=== PATIENT | male | born 1940 | race Caucasian/White ===

== ENCOUNTER 2017-12-26 13:57 | Emergency (ER) | payer OTHER ==
[2017-12-26 14:38] LABS: ADD MAN DIFF? NO
[2017-12-26] MEDS: SOD CHLORIDE 0.9% 500 ML IV (14:38)
[2017-12-26] MEDS: ASPIRIN 325 MG TAB PO (14:38)
[2017-12-26] MEDS: LIDOCAINE/MYLANTA 40 ML BTL PO (14:38)
[2017-12-26 14:40] LABS: WHITE BLOOD COUNT 7.6 10^3/ul (4.8-10.8)
[2017-12-26 14:40] LABS: BASOPHILS % 0.3 % (0.0-2.0); EOSINOPHILS # 0.2 10^3/ul (0.0-0.5); EOSINOPHILS % 2.8 % (0.0-7.0); HEMATOCRIT 41.9 % (42.0-52.0); HEMOGLOBIN 14.6 g/dl (14.0-18.0); LYMPHOCYTES # 1.9 10^3/ul (0.8-2.9); LYMPHOCYTES % 25.4 % (15.0-51.0); MEAN CORPUSCULAR HEMOGLOBIN 31.1 pg (29.0-33.0); MEAN CORPUSCULAR HGB CONC 34.8 g/dl (32.0-37.0); MEAN CORPUSCULAR VOLUME 89.3 fl (82.0-101.0); MEAN PLATELET VOLUME 9.7 fl (7.4-10.4); MONOCYTE # 0.6 10^3/ul (0.3-0.9); MONOCYTES % 8.1 % (0.0-11.0); NEUTROPHIL # 4.8 10^3/ul (1.6-7.5); NEUTROPHILS % 63.3 % (39.0-77.0); PLATELET COUNT 256 10^3/UL (140-415); RED BLOOD COUNT 4.69 10^6/ul (4.70-6.10); RED CELL DISTRIBUTION WIDTH 12.7 % (11.5-14.5)
[2017-12-26 15:02] LABS: ANION GAP 19 (8-16); BLOOD UREA NITROGEN 23 mg/dl (7-20); CALCIUM 9.9 mg/dl (8.4-10.2); CARBON DIOXIDE 24 mmol/L (21-31); CHLORIDE 103 mmol/L (97-110); CREATININE 0.78 mg/dl (0.61-1.24); GLUCOSE 169 mg/dl (70-220); POTASSIUM 4.1 mmol/L (3.5-5.1); SODIUM 142 mmol/L (135-144)
[2017-12-26 15:14] LABS: B-TYPE NATRIURETIC PEPTIDE 73 PG/ML (0-450)
[2017-12-26 15:19] LABS: TROPONIN-I < 0.012 ng/ml (0.000-0.120)
[2017-12-26] MEDS: KETOROLAC 15 MG INJ IV (18:10)
== END 2017-12-26 18:51 | disposition home or self-care (01) ==
LOC: E/R 13:57
DX: R20.2 Paresthesia of skin (principal); I10 Essential (primary) hypertension; E11.9 Type 2 diabetes mellitus without complications; Z79.82 Long term (current) use of aspirin; Z79.84 Long term (current) use of oral hypoglycemic drugs
CPT/HCPCS: 36415; 71045; 72125; 80048; 83880; 84484; 85025; 93005; 96374; 99285-25